=== PATIENT | female | born 1995 | race Caucasian/White ===

== ENCOUNTER 2017-11-23 01:45 | Emergency (ER) | payer OTHER ==
[~2017-11-23] VITALS: Ht 149.9 cm; Wt 54.4 kg
[2017-11-23 01:55] VITALS: BP 111/80
[2017-11-23] MEDS ORDERED: LORAZEPAM INJ 2 MG/ML VIAL ONE (02:29)
[2017-11-23] MEDS ORDERED: LORAZEPAM INJ 2 MG/ML VIAL IM ONE (02:30)
== END 2017-11-23 02:45 | disposition home or self-care (01) ==
LOC: ER 01:45
DX: F41.8 Other specified anxiety disorders (principal)
CPT/HCPCS: 96372; 99284; A4606; J2060; Z7610